=== PATIENT | female | born 1980 | race Caucasian/White ===

== ENCOUNTER 2017-01-27 05:43 | Inpatient (IN) ==
[2017-01-24 12:36] LABS: Basophils # 0.1 10*3/uL (0.0-0.2); Basophils % 0.4 % (0.0-0.8); Eosinophils # 0.2 10*3/uL (0.0-0.87); Eosinophils % 1.4 % (0.00-10.9); Hematocrit 36.9 VOL% (35.7-47.0); Immature Granulocytes % 0.4 %; Immature Granulocytes Absolute 0.05 #; Lymphocytes # 4.2 10*3/uL (1.4-4.0); Lymphocytes % 30.7 % (21.3-54.2); Mean Corpuscular HGB Conc 32.5 GM/DL (32-36); Mean Corpuscular Hemoglobin 27 PG (27-34); Mean Corpuscular Volume 83.9 FL (87-102); Mean Platelet Volume 11.3 FL (9.6-12.0); Monocytes # 0.7 10*3/uL (0.11-0.8); Monocytes % 5.2 % (1.7-12.7); Neutrophils # 8.5 10*3/uL (1.4-7.4); Neutrophils % 61.9 % (38.7-73.9); Platelet Count 269 T/CUMM (130-400); Red Cell Distribution Width 14.2 % (9.3-17.3); White Blood Count 13.7 T/CUMM (4-12)
[2017-01-24 13:10] LABS: Calcium 8.9 MG/DL (8.5-10.1); Osmolality,Calculated 274.5 MOS/KG (273-304); Potassium 4.1 MMOL/L (3.5-5.1)
[2017-01-27] MEDS ORDERED: ceFAZolin 1,000 MG VIAL ONE (06:35)
[2017-01-27] MEDS ORDERED: SODIUM CHLORIDE 0.9% 100 ML IV ONE (06:35)
--- NOTE | 2017-01-27 06:52 | History and Physical Update ---
History and Physical Update - History and Physical H&P was reviewed, the patient examined and there: are no changes in the patients condition since last H&P was completed.
[2017-01-27] MEDS: LACTATED RINGERS 1,000 ML IV SCH ×5 (07:11→20:07)
--- NOTE | 2017-01-27 07:12 | XRay Report ---
XR abdomen 2V Indication: "Preop evaluation". No additional history provided. Abdomen 3 views: Stimulator device in the left midabdomen extends towards the stomach. Surgical clips in the left upper quadrant and right upper quadrant are present. No small bowel dilatation. Normal amount of stool and gas in the colon. No free air. Obesity noted. Impression: Implanted electronic device left mid abdomen. Cholecystectomy clips. Normal bowel gas pattern. PROCEDURE INTERPRETED AT [facility] DEPARTMENT OF RADIOLOGY Final Report Signed by: Juan De La Cruz M.D.
[2017-01-27] MEDS ORDERED: PROMETHAZINE 25 MG/1 ML VIAL IM PRN (10:04)
[2017-01-27] MEDS ORDERED: HYDROmorphone 2 MG/1 ML VIAL IV PRN ×2 (10:04)
[2017-01-27] MEDS ORDERED: BISACODYL 5 MG TABLET PO PRN (10:04)
[2017-01-27] MEDS ORDERED: ONDANSETRON 4 MG/2 ML VIAL IV PRN ×2 (10:04→10:25)
[2017-01-27] MEDS ORDERED: ACETAMINOPHEN 325 MG TABLET PO PRN (10:04)
[2017-01-27] MEDS ORDERED: ALBUTEROL/IPRATROPIUM 3 ML NEB RESP TX PRN (10:04)
--- NOTE | 2017-01-27 10:13 | Anesthesia Post-Op ---
Anesthesia Post OP - Post Ansesthetic Evaluation Patient seen in post op: Yes Resp: within normal limits CV: within normal limits Mental: within normal limits Temp: within normal limits [id number]: within normal limits Nausea and Vomiting: within normal limits Pain: within normal limits
[2017-01-27] MEDS ORDERED: fentaNYL 100 MCG/2 ML VIAL ONE (10:20)
[2017-01-27] MEDS ORDERED: DESFLURANE 1 UNIT/15 MINUTE INH ONE (10:20)
[2017-01-27] MEDS ORDERED: PROPOFOL 200 MG/20 ML VIAL IV ONE (10:20)
[2017-01-27] MEDS ORDERED: GLYCOPYRROLATE 0.4 MG/2 ML VIAL ONE (10:21)
[2017-01-27] MEDS ORDERED: NEOSTIGMINE 10 MG/10 ML VIAL ONE (10:21)
[2017-01-27] MEDS ORDERED: ROCURONIUM 100 MG/10 ML VIAL IV ONE (10:21)
[2017-01-27] MEDS ORDERED: MIDAZOLAM 2 MG/2 ML VIAL ONE (10:21)
[2017-01-27] MEDS ORDERED: ACETAMINOPHEN 1,000 MG/100 ML VIAL IV ONE (10:22)
[2017-01-27] MEDS: HYDROmorphone 2 MG/1 ML VIAL IV PRN ×4 (10:35→11:15)
--- NOTE | 2017-01-27 10:55 | XRay Report ---
Abdomen flat and erect. Indication: Gastric lead placement. Comparison: Exam from earlier today. The heart is normal in size. Surgical clips are noted in the right upper quadrant. An electronic device and wires project over the left upper quadrant. The tangled wire seen previously are no longer visible. Surgical clips in the right upper quadrant. Normal bowel gas pattern. Stable osseous structures. Impression: Revision of the gastric stimulator. PROCEDURE INTERPRETED AT [facility] DEPARTMENT OF RADIOLOGY Final Report Signed by: Dr. Chandrika Marquez
--- NOTE | 2017-01-27 12:23 | Operative Note ---
Date of procedure: 01/27/17 Pre-op diagnosis: Malfunctioning gastric stimulator Post-op diagnosis: same Procedure: Procedure performed #1 robotically assisted laparoscopic removal of gastric stimulator leads #2 robotically assisted laparoscopic placement of new gastric stimulator leads #3 removal of old gastric stimulator generator #4 placement of new gastric generator stimulator #5 EGD #6 programming of the stimulator #7 laparoscopic and robotic lysis of adhesions Procedure in detail: After informed consent was obtained, patient was taken operating suite lights upon the operating table. The stimulator was turned to the off position. After general anesthesia was induced abdomen was prepped and draped in usual sterile fashion. Ioban drape was used. After procedural pause local anesthetic infiltrated in the skin and subcutaneous tissue directly over the palpable generator battery in the left upper quadrant. Dissection carried down through skin and soft tissue. The capsule surrounding the generator was encountered and opened and the generator and leads were pulled out of the pocket after transecting the suture holding them in place. The leads were disconnected. Then along the posterior aspect of the capsule I continued dissection down through the fascial layer and encountered the abdominal cavity. It was entered bluntly. Finger sweep revealed adhesions more medially and slightly superior to the entrance site. The lateral aspect of the entrance site was free and a Ellis trocar was placed there under direct visualization. Pneumoperitoneum achieved. The area was inspected and there was no obvious bowel in the area and no injury to the omentum. Next a 8 mm trocar was placed in the left upper quadrant as well as a 5 mm trocar both under visualization. Using this trocar was able to look back at the adhesions and place a right upper quadrant 8 mm trocar and use it to dissect laparoscopically the adhesions away from the Ellis trocar site. Identified the pacemaker leads entering the abdominal cavity and going down to the stomach. There was a lot of adhesions around the leads. I could not continue dissecting any further until the leads were transected allowing that portion to fall down and so this was done using scissors and remove the excess lead. Next I was able to dissect more of the adhesions down freeing up the area all around the Ellis trocar site and then the camera was docked and I took control to consult. Using the vessel sealer I continued to take down the midline adhesions in the upper abdomen which were tethering a lot of the tissue just below the stomach limiting the visualization in that area. I continue to take the adhesions down with the vessel sealer including portion of the falciform ligament. Once this was done I had good visualization of the stomach and the leads where they entered the stomach. As I began to dissect the remaining portion of the leads just inferior to the stomach identified that both trumpets were no longer near the stomach and were at least a centimeter away indicating that both of the leads have pulled away from the stomach wall. The Silastic discs appeared in place. I did not see the Prolene suture within the Silastic disc. I dissected the trumpets and leads away from the scar tissue and adhesions up to the point at which they entered the gastric wall and transected them at that level. I did not feel that I could safely remove them from the stomach wall without causing gastrotomy or injury. That portion of the leads which was dissected was then removed. Next 2 new leads were introduced into the abdominal cavity along the Ellis trocar and the skin needles were used to drive the brought blue Prolene suture into the stomach wall near the previously placed leads. The new leads were placed approximately 1 cm apart. The blue Prolene suture was left in the stomach wall and an EGD inserted endoscopy performed the stomach insufflated. There is some mild gastritis present but the blue Prolene sutures were not visible. There was certainly no mucosal disruption or abnormality other than gastritis seen. The stomach was then desufflated the leads were pulled into the stomach wall and the stimulator was attached and the impedance was checked. Impedance was 467. The endoscope was withdrawn and the Silastic disc inserted in the skin needles were placed through the disc and clips were placed along the suture keeping the disc and leads snug in the gastric wall. The trumpets and Silastic disc were then secured to the stomach wall using interrupted 2-0 Ethibond suture. There was excellent hemostasis throughout the procedure. The excess lead was pulled out of the abdomen. The robot was undocked and the trochars removed as the abdomen was desufflated. Fascia at the Ellis trocar site was closed using 0 Vicryl interrupted [id number] suture and 0 Prolene suture. The excess lead was wrapped behind the stimulator and the stimulator was placed back into the pocket. It was secured to the fascia with 2-0 Prolene suture. The capsule was reapproximated with 3-0 Vicryl running suture after the wound was thoroughly irrigated and suctioned. The deep dermal layer was closed with 3-0 Vicryl. 4-0 Monocryl was used to close the skin. Stimulator was then programmed to nominal settings. The battery is okay. The impedance was 464. It was programmed to the on position. Sterile dressings applied. The patient was extubated and taken recovery room in stable condition. All lap and needle counts were correct at the end of the case. Anesthesia: GETA Surgeon / Physician: Awais Staples Estimated blood loss: other (Less than 10 cc) Specimens: other (Old stimulator and leads) Condition: stable Disposition: PACU Results - Labs CBC & BMP: 01/24/17 12:29 01/24/17 12:29 Discharge Plan - Discharge Medications No Action HYDROcodone/IBUPROFEN 7.5-200 [Vicoprofen] 1 tablet PO Q6HR PRN PRN Reason: Pain Fluoxetine HCl [Prozac] 40 mg PO PC SUPPER Amitriptyline [Elavil] 50 mg PO BEDTIME Midodrine [Proamatine] 10 mg PO DAILY FLUoxetine [PROzac] 20 mg PO QAM Ondansetron Tab [Zofran Tab] 8 mg PO Q4HR PRN PRN Reason: Nausea Pantoprazole Tab [Protonix Tab] 40 mg PO DAILY - Follow Up or Referral - Forms/Instructions
[2017-01-27] MEDS: FLUoxetine 20 MG CAPSULE PO SCH (13:11)
[2017-01-27] MEDS: MIDODRINE 5 MG TABLET PO SCH (13:11)
[2017-01-27] MEDS: KETOROLAC 15 MG/1 ML VIAL IV PRN ×2 (15:15→21:40)
[2017-01-27] MEDS: ceFAZolin 2,000 MG in PREMIX 1 EACH IV SCH ×2 (16:31→23:31)
[2017-01-27] MEDS ORDERED: AMITRIPTYLINE 50 MG TABLET PO SCH (17:00)
[2017-01-27] MEDS ORDERED: FLUoxetine 20 MG CAPSULE PO SCH (18:00)
[2017-01-28] MEDS: LACTATED RINGERS 1,000 ML IV SCH (04:08)
[2017-01-28 05:40] LABS: Basophils % 0.3 % (0.0-0.8); Eosinophils % 0.1 % (0.00-10.9); Hematocrit 34.6 VOL% (35.7-47.0); Hemoglobin 11.1 GM/DL (12.0-16.0); Immature Granulocytes % 0.4 %; Immature Granulocytes Absolute 0.06 #; Lymphocytes # 3.3 10*3/uL (1.4-4.0); Lymphocytes % 21.4 % (21.3-54.2); Mean Corpuscular HGB Conc 32.1 GM/DL (32-36); Mean Corpuscular Hemoglobin 27 PG (27-34); Mean Corpuscular Volume 84.2 FL (87-102); Mean Platelet Volume 12.4 FL (9.6-12.0); Monocytes # 0.9 10*3/uL (0.11-0.8); Monocytes % 5.6 % (1.7-12.7); Neutrophils # 11.1 10*3/uL (1.4-7.4); Neutrophils % 72.2 % (38.7-73.9); Platelet Count 263 T/CUMM (130-400); Red Blood Count 4.11 MC/CUMM (3.8-5.5); White Blood Count 15.4 T/CUMM (4-12)
[2017-01-28] MEDS ORDERED: ENOXAPARIN 40 MG/0.4 ML SYRINGE SUBCUT SCH (06:00)
[2017-01-28 06:13] LABS: Calcium 8.8 MG/DL (8.5-10.1); Osmolality,Calculated 274.5 MOS/KG (273-304); Potassium 4.4 MMOL/L (3.5-5.1)
[2017-01-28 07:22] VITALS: BP 138/74
[2017-01-28] MEDS: FLUoxetine 20 MG CAPSULE PO SCH (08:27)
[2017-01-28] MEDS: MIDODRINE 5 MG TABLET PO SCH (08:27)
--- NOTE | 2017-01-28 10:46 | Discharge Summary ---
Hospital Course - Hospital Course Hospital Course: 36-year-old white female with history of depression and gastroparesis followed up and Dr. Staples's clinic with reports of nausea, bloating, early satiety and epigastric pain. Patient had a gastric stimulator placed that was working well until recently. She most likely had migration of the leads or scar tissue. She was admitted and taken to the operating room on 01/27/2017 for robotically assisted laparoscopic removal of gastric stimulator leads and old gastric stimulator generator and placement of new leads and generator along with laparoscopic lysis of adhesions. Patient has done very well postoperatively. She is tolerating a liquid diet and ambulating in the room. Her pain is well controlled. Dr. Staples has instructed her to continue on a clear liquid diet for the next 2-3 days. She will need to eat 6 small meals a day to keep from stretching out the leads. This will extend the life of her stimulator. Patient will be discharged home with a one-week follow-up with Dr. Staples. Complete discharge instructions were given to the patient and her father in the room. Care coordination, chart review, and completed discharge paperwork took approximately 33 minutes. - Time spent with patient Time with patient DS: Greater than 30 minutes Specialty Discharge - Follow Up or Referrals Follow up with: Awais Staples MD [Physician] - 02/02/17 10:45 am Discharge Plan - Discharge Data Disposition: Disch To Home/Self Care Condition at Discharge: Stable Discharge Diet: other (Clear liquid diet for 2-3 days) Activity: no lifting Hygiene: may shower Driving: other (No driving if taking pain medications) Contact your physician if you experience:: fever over 101, Redness or swelling, Nausea/Vomiting - Discharge Medications Continue HYDROcodone/IBUPROFEN 7.5-200 [Vicoprofen] 1 tablet PO Q6HR PRN PRN Reason: Pain Fluoxetine HCl [Prozac] 40 mg PO PC SUPPER Amitriptyline [Elavil] 50 mg PO BEDTIME Midodrine [Proamatine] 10 mg PO DAILY FLUoxetine [PROzac] 20 mg PO QAM Ondansetron Tab [Zofran Tab] 8 mg PO Q4HR PRN PRN Reason: Nausea Pantoprazole Tab [Protonix Tab] 40 mg PO DAILY - Follow Up or Referral Follow Up: Awais Staples MD [Physician] - 02/02/17 10:45 am - Forms/Instructions Forms: Acute Care Work/School Release Exam - Constitutional Vitals: Period Temp Pulse Resp BP Sys/Barcenas Pulse Ox Last 24 Hr 97.0 F-98.4 F 59-100 18-20 116-141/62-89 93-99 Discharge Results Labs on day of discharge: Labs from last 24 hours 01/28/17 01/28/17 04:42 04:42 WBC 15.4 H RBC 4.11 Hgb 11.1 L Hct 34.6 L MCV 84.2 L MCH 27 MCHC 32.1 RDW 14.0 Plt Count 263 MPV 12.4 H Neut % (Auto) 72.2 Lymph % (Auto) 21.4 [place] % (Auto) 5.6 Eos % (Auto) 0.1 Baso % (Auto) 0.3 Neut # (Auto) 11.1 H Lymph # (Auto) 3.3 [place] # (Auto) 0.9 H Eos # (Auto) 0.0 Baso # (Auto) 0.0 Immature Gran % 0.4 Nucleated RBC % 0.0 Immature Gran # 0.06 Nucleated RBCs # 0.00 Immature Plt Fraction 0.0 Sodium 139 Potassium 4.4 Chloride 102 Carbon Dioxide 30 Anion Gap 11.4 BUN 8 Creatinine 0.70 GFR Calculation 162 BUN/Creatinine Ratio 11.00 Glucose 103 Calculated Osmolality 274.5 Calcium 8.8 DS: Provider Date of admission: 01/27/17 05:43 Primary care physician: . No PCP Attending physician on admission: Awais Staples MD Discharging clinician: ISIAH Arellano Expected date of discharge: 01/28/17
--- NOTE | 2017-01-28 19:19 | Pathology Report from [facility] ---
[facility] ACCESSION # : [id number] PATIENT NAME : Pamela Ireland ORDERING DR : Awais Staples MD CLINICAL HX: Gastroparesis POST-OP DX: Same SPECIMEN INFO: Old gastric stimulator and leads GROSS DESCRIPTION: Received in formalin labeled with the patients name and is a gastric stimulator and leads, serial number [id number]. Gross only. DIAGNOSIS FOR PAMELA IREL[place]: Gastric stimulator and leads, gross only. COLLECTED DATE: 01/27/2017 [facility] REPORT DATE: 01/28/2017 ELECTRONICALLY SIGNED BY: James Montesinos M.D. 01/28/2017 - 10:31:00 [facility]
--- NOTE | 2017-02-02 13:38 | Physician Query Form ---
CLICK EDIT DOCUMENT TO SELECT QUERY ANSWER --> OK --> SIGN Monae Phoenix RN Clinical Legal Job Titles W) [phone] (f) [phone] [email or web address] PROVIDERS: Make your selection(s) from the choices in EACH section by typing an "x" and enter comments in the comment section. Please use your independent medical judgment in providing your response. This request does not imply that any particular answer is desired or expected. CLINICAL INDICATORS: (Providers should not edit this section) Pt. admitted with a malfunctioning gastric stimulator. Pt. had placement of new gastric generator stimulator. Please clarify the type of stimulator inserted. Based on the above, could you clarify the appropriate diagnosis, if significant , that supports the above abnormalities and additional evaluation, monitoring, and/or treatment rendered: (x ) Stimulator Generator, Multiple Array ( ) Stimulator Generator, Multiple Array Rechargeable ( ) Stimulator Generator, Single Array ( ) Stimulator Generator, Single Array Rechargeable ( ) Other, please specify: ( ) Clinically unable to determine COMMENTS: PLEASE ALSO DOCUMENT RESPONSE IN PROGRESS NOTES AND/OR DISCHARGE SUMMARY Use of terms such as suspected, likely, or probable (associated with a specific diagnosis that is being evaluated, monitored, or treated as if it exists) are acceptable and can be restated in the discharge summary if not ruled out. MTDD
== END 2017-01-28 11:20 | disposition home or self-care (01) | DRG 41 ==
LOC: N.SDSINP 05:43 → N.3E 12:13
PROVIDERS: ADMIT Surgery; ATTEND Surgery